=== PATIENT | male | born 1995 | race African-American/Black ===

== ENCOUNTER 2017-01-09 14:27 | Emergency (ER) | payer OTHER ==
[~2017-01-09] VITALS: Ht 170.2 cm; Wt 59.9 kg
--- NOTE | 2017-01-09 14:37 | Emergency Room Report ---
History of Present Illness General Chief Complaint: To Be Triaged Source: Patient Present Illness HPI 21YOM walk-in with lower back pain for 7 months. 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 Was taken to outside hospital for CT and was DCed from ER, told he has "contusion." Was given ibuprofen and T#3 but states ibuprofen made him vomit and T#3 caused his face to swell so much that he "went back to the ER." Is doing physical therapy. Was given [place] 10 previously which states is "the only thing that helps the pain." States ran out a month ago, requesting refill. Denies other medical problems. Denies urinary/fecal incontinence, lower extremity weakness, history of cancer. Allergies: Coded Allergies: ACETAMINOPHEN (Verified Allergy, Unknown, 01/09/17) HYDROCODONE (Verified Allergy, Unknown, 01/09/17) IBUPROFEN (Verified Allergy, Unknown, 01/09/17) Patient History Past Medical History: none Past Surgical History: none Pertinent Family History: none Social History: Denies: alcohol use, drug use, smoking Immunizations: UTD Reviewed Nursing Documentation: PMH: Agreed, PSxH: Agreed Review of Systems All Other Systems: negative except mentioned in HPI Physical Exam Sp02 EP Interpretation: reviewed, normal General Appearance: normal inspection, well appearing, no apparent distress, alert, GCS 15, non-toxic Head: normocephalic, atraumatic Eyes: bilateral eye EOMI, bilateral eye PERRL ENT: normal ENT inspection, hearing grossly normal, normal voice Neck: normal inspection, full range of motion, supple, no bony tend Respiratory: normal inspection, lungs clear, normal breath sounds, no respiratory distress, no retraction, no accessory muscle use, no wheezing Cardiovascular #1: regular rate, rhythm, no edema Gastrointestinal: normal inspection, normal bowel sounds, non tender, soft, no guarding, no hernia Genitourinary: no CVA tenderness Musculoskeletal: normal inspection, back normal, normal range of motion, Neo' s Sign negative Neurologic: normal inspection, alert, oriented x3, responsive, mixing machine feeder III-XII nml as tested, motor strength/tone normal, speech normal Psychiatric: normal inspection, judgement/insight normal, mood/affect normal Skin: normal inspection, normal color, no rash Medical Decision Making ER Course A: low suspicion for cord compression given well appearance, left paravertebral ttp, no focal neuro deficits, duration of pain for 17 months, absence of midline ttp/masses and pain worse with movement with known exacerbating activity Also concern for narcotic-seeking behavior Per CURES, narco Rx in mid-November and also on December 24 Advised Robaxin as needed, continued PT, hot/cold compress as needed, PMD followup DC home Status: improved Disposition: HOME, SELF-CARE Scripts Methocarbamol* (ROBAXIN-750*) 750 Mg Tablet 750 MG PO TID for low back pain, #30 TAB 0 Refills Prov: DANY MAYNARD M.D. 01/09/17 DANY MAYNARD M.D. January 09, 2017 14:37
[2017-01-09] MEDS ORDERED: NKM (14:58)
[2017-01-09] MEDS ORDERED: ROBAXIN-750750 MG PO (15:08)
[2017-01-09 15:15] VITALS: BP 166/78
[2017-01-09] MEDS ORDERED: Methocarbamol 750mg tab ORAL ONE (15:15)
== END 2017-01-09 15:15 | disposition home or self-care (01) ==
LOC: EMR 15:00
DX: M54.5 Low back pain (principal); Z88.6 Allergy status to analgesic agent
CPT/HCPCS: 99283